=== PATIENT | male | born 1985 | race Caucasian/White ===

== ENCOUNTER → 2018-06-26 20:04 | Outpatient (CLI) | payer OTHER, SELFPAY ==
--- NOTE | 2018-06-26 20:18 | DI.MRI.S_ITS ---
PROCEDURE: MR KNEE RT WO CON INDICATIONS: LOCKED KNEE, CANNOT FULLY STRAIGHTEN TECHNIQUE: Noncontrast sagittal PD fast spin echo and T2 fast spin echo with fat saturation, sagittal 3-D FLASH with fat saturation; coronal T1 spin echo and PD fast spin echo with fat saturation, and axial PD fast spin echo with fat saturation through the knee. COMPARISON: None. FINDINGS: Image quality: Excellent. Menisci: Circumferential ill-defined macerated tear involving anterior horn, body and posterior horn of the medial meniscus. There is also truncation and blunting of the free margin the body. The lateral meniscus appears intact. Cruciate ligaments: Postsurgical changes related to prior ACL reconstruction. The graft appears grossly intact the posterior cruciate ligament appears intact Medial structures: Prominent thickening in signal change along the proximal medial collateral ligament where there is some ossification on image 27 series 20 presumably reflecting sequela from prior ligamentous injury. The posterior oblique ligament, semimembranosus tendon insertions, oblique popliteal ligament, and meniscocapsular junction appear intact. Visualized portions of the pes anserinus tendons appear normal. No abnormal bursal fluid. Lateral structures: The lateral collateral ligament, long and short heads of the biceps femoris tendon appear intact. The popliteus tendon appears normal; the popliteofibular ligament appears intact. The posterosuperior and anteroinferior popliteomeniscal fascicles appear intact. The arcuate and fabellofibular ligaments appear intact, on either side of the lateral inferior geniculate artery. Iliotibial band appears normal. Anterior structures: The quadriceps tendon appears intact. Proximal patellar tendinopathy. Patellar alignment is normal. No femoral trochlear dysplasia or ventral trochlear prominence. No edema in the infrapatellar fat pad. Bones and cartilage: No bone marrow contusions or fractures. Within the medial compartment, there is diffuse partial-thickness loss and fibrillation of the femoral and tibial articular cartilage. Within the lateral compartment, subchondral osteophyte seen in the central femoral condyle. There is overlying near full-thickness femoral articular cartilage loss there is also intrasubstance signal in the changes in the central tibial weightbearing cartilage. Within the patellofemoral compartment, diffuse surface fraying and partial-thickness loss of the patellar and femoral trochlear articular cartilage. Joint space: Large joint effusion is present. No definite loose bodies identified although there may be synovial thickening/synovitis in the suprapatellar recess. No Fontana's cyst. IMPRESSION: Circumferential macerated tear involving the medial meniscus as above. Intact ACL graft. Chronic appearing sprain of the proximal MCL. Tricompartmental degenerative joint disease. Large joint effusion. Dictated by: Usama Sanchez M.D. on 06/27/2018 at 8:36 Approved by: Usama Sanchez M.D. on 06/27/2018 at 9:23
== END ==
PROVIDERS: Referring Provider Orthopaedic Surgery; Visit Provider Orthopaedic Surgery
DX: M25.561 Pain in right knee (principal); S83.241A Other tear of medial meniscus, current injury, right knee, initial encounter; S83.411A Sprain of medial collateral ligament of right knee, initial encounter; M17.11 Unilateral primary osteoarthritis, right knee; M25.461 Effusion, right knee
CPT/HCPCS: 73721

== ENCOUNTER 2022-04-01 10:21 | Emergency (ER) | payer OTHER, SELFPAY ==
[2022-04-01] VITALS (10 sets, daily range): BP systolic 128–151; BP diastolic 81–109; PULSE 64–89; RESP 14–18; TEMP 36.6; O2SAT 96–100; BMI 24.3
--- NOTE | 2022-04-01 10:36 | DI.CT.S_ITS ---
PROCEDURE: CT KIDNEY URETER BLADDER (KUB) INDICATIONS: flank pain, ? stone TECHNIQUE: Axial sections were acquired from the lung bases to the pubic symphysis. Coronal and sagittal reformats were performed. For radiation dose reduction, the following was used: automated exposure control, adjustment of mA and/or kV according to patient size. COMPARISON: None. FINDINGS: Image quality: Excellent. Lung bases: Unremarkable. Heart: No significant findings. URINARY: Right Kidney: There are 2 renal calcifications the largest measuring 3 mm. No. Right Ureter: No hydroureter. Left Kidney: There are 3 punctate renal calcifications. Moderate hydronephrosis is present. Left Ureter: Proximal hydroureter. 7 mm proximal ureteral calcification, Hounsfield units 853 is present. A 2nd calcification approximately 5 mm distal is identified measuring 5 mm, Hounsfield units 701. Bladder: Normal wall thickness. No stones. ABDOMEN: Liver: Is enlarged measuring 19.6 cm. Gallbladder: Unremarkable. Biliary ducts: Unremarkable. Pancreas: Unremarkable. Spleen: Unremarkable. Adrenal Glands: Unremarkable. Stomach and Bowel: Stomach, small bowel loops, and colon are unremarkable. Peritoneum: No abnormal intraperitoneal fluid. No free air. Ventral Wall: No hernia. Abdominal Nodes: No enlarged retroperitoneal or mesenteric lymph nodes. Vessels: Aorta and inferior vena cava are normal in size. PELVIS: Pelvic Organs: Unremarkable. Pelvic Nodes: Unremarkable. Miscellaneous: No inguinal hernias are seen. Bones: Unremarkable. IMPRESSION: Nonobstructing bilateral renal calculi. Moderate left hydronephrosis and proximal hydroureter secondary to to proximal ureteral stone calcifications. Dictated by: Soheila Pascal M.D. on 04/01/2022 at 11:01 Approved by: Soheila Pascal M.D. on 04/01/2022 at 11:03
[2022-04-01] MEDS: ONDANSETRON 4 MG/2 ML INJ IV (10:55)
[2022-04-01] MEDS: HYDROMORPHONE 0.5 MG INJ IV ×2 (10:55→13:13)
[2022-04-01] MEDS: KETOROLAC 30 MG/ML VIAL 15 MG IV ×2 (10:55→13:39)
[2022-04-01] MEDS: SODIUM CHLORIDE 0.9% 1,000 ML 1000 ML IV ×3 (10:55→16:39)
[2022-04-01 11:26] LABS: Add Manual Diff / Slide Review NO; Basophils Absolute Auto 0 /uL (0-100); Basophils Percent Auto 0.2 % (0-2); Eosinophils Absolute Auto 100 /uL (0-450); Eosinophils Percent Auto 0.6 % (2-4); Hematocrit 45.6 % (41-53); Hemoglobin 15.8 g/dL (13.5-17.5); Lymphocytes Absolute Auto 1200 /uL (1100-4500); Lymphocytes Percent Auto 7.9 % (25-40); Mean Corpuscular HGB Conc 34.7 % (30-36); Mean Corpuscular Hemoglobin 34.1 PG (26-34); Mean Corpuscular Volume 98.3 fL (80-100); Monocytes Absolute Auto 600 /uL (0-900); Monocytes Percent Auto 3.9 % (3-14); Neutrophils Absolute Auto 12700 /uL (1500-7000); Neutrophils Percent Auto 87.4 % (50-75); Platelet Count 290 X10^3/uL (150-400); Red Blood Cell Count 4.64 X10^6/uL (4.5-5.9); Red Cell Distribution Width 13.5 % (11.6-14.8); White Blood Cell Count 14.6 X10^3/uL (4.5-11.0)
[2022-04-01 11:29] LABS: Alanine Aminotransferase 22 IU/L (<50); Albumin 4.3 g/dL (3.5-5.0); Albumin Globulin Ratio 1.3 (1.0-2.8); Alkaline Phosphatase 66 U/L (38-126); Aspartate Aminotransferase 30 IU/L (17-59); BUN Creatinine Ratio 10.7 (6-22); Bilirubin Total 0.4 mg/dL (0.2-1.3); Blood Urea Nitrogen 11 mg/dL (9-20); Calcium 8.8 mg/dL (8.4-10.2); Carbon Dioxide 22 mmol/L (22-32); Chloride 107 mmol/L (98-107); Estimated Glomerular Filt Rate > 60 mL/min (>60); Globulin 3.2 g/dL (1.7-4.1); Glucose 105 mg/dL (70-100); HEMOLYSIS 18 (0-50); Potassium 4.4 mmol/L (3.4-5.1); Sodium 141 mmol/L (137-145); Total Protein 7.5 g/dL (6.3-8.2)
--- NOTE | 2022-04-01 13:00 | ED_ITS ---
HPI - General Adult General Chief complaint: Urogenital-Male Stated complaint: left flank pain Time Seen by Provider: 04/01/22 10:32 Source: EMS Mode of arrival: EMS History of Present Illness HPI narrative: Otherwise healthy 37-year-old gentleman who began having severe left flank pain at 8:00 a.m. this morning. Is associated with severe diaphoresis, vomiting 2 episodes of loose stool. He has never had similar pain. He has not been sick prior to this. No palpitations, cough, fevers, headaches, chest pain. Related Data Previous Rx's Medication Instructions Recorded oxycodone-acetaminophen 5 mg-325 1 tab PO Q6H PRN pain #20 tabs 04/01/22 mg tablet tamsulosin 0.4 mg capsule 0.4 mg PO DAILY #30 caps 04/01/22 Allergies Allergy/AdvReac Type Severity Reaction Status Date / Time No Known Drug Allergies Allergy Verified 04/01/22 10:26 Review of Systems Review of Systems Narrative: Remainder of complete review of systems is otherwise unremarkable except for that included in the HPI. Patient History Social History Smoking Status: Current every day smoker Smoking Status: Current every day smoker tobacco type: cigarettes and vaping alcohol intake frequency: 0-2 drinks per day Substance Use Type: does not use Exam Initial Vital Signs Initial Vital Signs: Vital Signs Blood Pressure 147/100 H 04/01/22 10:22 General: Healthy appearing, mildly diaphoretic, moderate left flank pain but Able to give a complete and coherent history. Well-nourished well-developed HEENT: Moist mucous membranes, normal sclera with reactive pupils, Neck: No JVD, supple Respiratory: Lungs are clear to auscultation, no wheezing no rales no rhonchi. Full and symmetrical air movement Cardiac: Regular rate and rhythm no murmurs no bruits Abdomen: Soft, nontender, good bowel tones, left flank pain Skin: Warm and dry, no rashes Neurologic: Grossly neurologically intact with no obvious asymmetries or abnormalities Extremities: No trauma, well perfused Psych: Cooperative, appropriate insight and affect Course Orders Ordered: ED Orders 04/01/22 10:36 CT kidney ureter bladder (KUB) Stat 04/01/22 11:02 Complete Blood Count AUTO DIFF Stat Comprehensive Metabolic Panel Stat 04/01/22 17:55 Urine Microscopic Stat Hydromorphone HCl (Hydromorphone 0.5 Mg Inj) 0.5 mg IV Q15MIN PRN PRN Reason: Pain, Last Admin: 04/01/22 13:13 Dose: 0.5 mg Documented By: Admin: 04/01/22 10:55 Dose: 0.5 mg Documented By: LANNY Discontinued Medications Hydromorphone HCl (Hydromorphone 1 Mg Inj) 1 mg IV NOW ONE Stop: 04/01/22 16:13 Last Admin: 04/01/22 16:33 Dose: 1 mg Documented By: SEGUNDO Sodium Chloride (Normal Saline 0.9%) 1,000 mls @ 1,000 mls/hr IV BOLUS ONE Stop: 04/01/22 11:35 Last Infusion: 04/01/22 13:12 Dose: 0 mls/hr Documented By: Admin: 04/01/22 10:55 Dose: 1,000 mls/hr Documented By: LANNY Sodium Chloride (Normal Saline 0.9%) 1,000 mls @ 1,000 mls/hr IV BOLUS ONE Stop: 04/01/22 14:24 Last Infusion: 04/01/22 15:12 Dose: 0 mls/hr Documented By: Admin: 04/01/22 13:40 Dose: 1,000 mls/hr Documented By: ROBBIE Sodium Chloride (Normal Saline 0.9%) 1,000 mls @ 1,000 mls/hr IV BOLUS ONE Stop: 04/01/22 17:11 Last Infusion: 04/01/22 17:50 Dose: 0 mls/hr Documented By: Admin: 04/01/22 16:39 Dose: 1,000 mls/hr Documented By: SEGUNDO Ketorolac Tromethamine (Ketorolac 30 Mg/Ml Vial) 15 mg IV NOW ONE Stop: 04/01/22 10:37 Last Admin: 04/01/22 10:55 Dose: 15 mg Documented By: LANNY Ketorolac Tromethamine (Ketorolac 30 Mg/Ml Vial) 15 mg IV NOW ONE Stop: 04/01/22 13:26 Last Admin: 04/01/22 13:39 Dose: 15 mg Documented By: ROBBIE Ondansetron HCl (Ondansetron 4 Mg/2 Ml Inj) 4 mg IV NOW ONE Stop: 04/01/22 10:37 Last Admin: 04/01/22 10:55 Dose: 4 mg Documented By: LANNY Oxycodone/Acetaminophen (Oxycodone/Acetaminophen 5/325 Tablet) 2 tab PO NOW ONE Stop: 04/01/22 13:26 Last Admin: 04/01/22 13:40 Dose: 2 tab Documented By: ROBBIE Tamsulosin HCl (Tamsulosin 0.4 Mg Capsule) 0.4 mg PO NOW ONE Stop: 04/01/22 13:26 Last Admin: 04/01/22 13:41 Dose: 0.4 mg Documented By: ROBBIE Vital Signs Vital signs: Vital Signs - 8 hr 04/01/22 11:00 04/01/22 11:30 04/01/22 12:00 Pulse Rate 77 64 74 Respiratory Rate Blood Pressure Pulse Oximetry 96 97 98 Oxygen Delivery Method Room Air 04/01/22 12:30 04/01/22 13:00 04/01/22 18:29 Pulse Rate 85 75 89 Respiratory Rate 14 Blood Pressure 132/85 Pulse Oximetry 98 98 97 Oxygen Delivery Method Room Air Room Air Medical Decision Making Lab Data Result diagrams: 04/01/22 11:02 04/01/22 11:02 Labs: Lab Results 04/01/22 04/01/22 Range/Units 11:02 11:02 WBC 14.6 H (4.5-11.0) X10^3/uL RBC 4.64 (4.5-5.9) X10^6/uL Hgb 15.8 (13.5-17.5) g/dL Hct 45.6 (41-53) % MCV 98.3 (80-100) fL MCH 34.1 H (26-34) PG MCHC 34.7 (30-36) % RDW 13.5 (11.6-14.8) % Plt Count 290 (150-400) X10^3/uL Neut % (Auto) 87.4 H (50-75) % Lymph % (Auto) 7.9 L (25-40) % [place] % (Auto) 3.9 (3-14) % Eos % (Auto) 0.6 L (2-4) % Baso % (Auto) 0.2 (0-2) % Neut # (Auto) 99332 H (6760-8459) /uL Lymph # (Auto) 1200 (4590-8777) /uL [place] # (Auto) 600 (0-900) /uL Eos # (Auto) 100 (0-450) /uL Baso # (Auto) 0 (0-100) /uL Sodium 141 (137-145) mmol/L Potassium 4.4 (3.4-5.1) mmol/L Chloride 107 (98-107) mmol/L Carbon Dioxide 22 (22-32) mmol/L BUN 11 (9-20) mg/dL Creatinine 1.03 (0.66-1.25) mg/dL Estimated GFR > 60 (>60) mL/min BUN/Creatinine Ratio 10.7 (6-22) Glucose 105 H (70-100) mg/dL Calcium 8.8 (8.4-10.2) mg/dL Total Bilirubin 0.4 (0.2-1.3) mg/dL AST 30 (17-59) IU/L ALT 22 (<50) IU/L Alkaline Phosphatase 66 (38-126) U/L Total Protein 7.5 (6.3-8.2) g/dL Albumin 4.3 (3.5-5.0) g/dL Globulin 3.2 (1.7-4.1) g/dL Albumin/Globulin Ratio 1.3 (1.0-2.8) Urine Dip Bedside Urine Glucose Negative Bedside Urine Bilirubin - Negative Bedside Urine Ketone - Negative Urine Specific [place] 1.030 Bedside Urine Occult Blood +++ Bedside Urine pH 6.0 Bedside Urine Protein + 30 Bedside Urine Urobilinogen - Negative Bedside Urine Nitrite - Negative Bedside Urine Leukocytes - Negative Esterase Point of care testing: Urine Dip Bedside Urine Glucose Negative Bedside Urine Bilirubin - Negative Bedside Urine Ketone - Negative Urine Specific [place] 1.030 Bedside Urine Occult Blood +++ Bedside Urine pH 6.0 Bedside Urine Protein + 30 Bedside Urine Urobilinogen - Negative Bedside Urine Nitrite - Negative Bedside Urine Leukocytes - Negative Esterase Imaging Data CT scan - abdomen/pelvis: Radiologist's Impression: FINDINGS: Image quality: Excellent. Lung bases: Unremarkable. Heart: No significant findings. URINARY: Right Kidney: There are 2 renal calcifications the largest measuring 3 mm. No. Right Ureter: No hydroureter. Left Kidney: There are 3 punctate renal calcifications. Moderate hydronephro sis is present. Left Ureter: Proximal hydroureter. 7 mm proximal ureteral calcification, Hounsfield units 853 is present. A 2nd calcification approximately 5 mm distal is identified measuring 5 mm, Hounsfield units 701. Bladder: Normal wall thickness. No stones. ABDOMEN: Liver: Is enlarged measuring 19.6 cm. Gallbladder: Unremarkable. Biliary ducts: Unremarkable. Pancreas: Unremarkable. Spleen: Unremarkable. Adrenal Glands: Unremarkable. Stomach and Bowel: Stomach, small bowel loops, and colon are unremarkable. Peritoneum: No abnormal intraperitoneal fluid. No free air. Ventral Wall: No hernia. Abdominal Nodes: No enlarged retroperitoneal or mesenteric lymph nodes. Vessels: Aorta and inferior vena cava are normal in size. PELVIS: Pelvic Organs: Unremarkable. Pelvic Nodes: Unremarkable. Miscellaneous: No inguinal hernias are seen. Bones: Unremarkable. IMPRESSION: Nonobstructing bilateral renal calculi. Moderate left hydronephrosis and proximal hydroureter secondary to to proximal ureteral stone calcifications. Dictated by: Soheila Pascal M.D. on 04/01/2022 at 11:01 MDM Narrative Medical decision making narrative: 37-year-old gentleman with left ureteral stone x2. A 7 mm stone in the proximal ureter and just distal to that a 5 mm stone with proximal hydroureter. Pain has been controlled For brief period of time but has continued to recur. After IV Toradol in 2 Percocet pain was controlled for a short bit of time but is re turning. After 2 L of fluid he still has not made any urine. 3 L of fluid additional Dilaudid will all be given. Bladder scan was done he truly does not have urine in his bladder. creatinine is unremarkable so making urine should not be an issue I assume that this is all simply dehydration. He is able to drink water and is continuing to do so. Need to obtain urine sample to make sure there is no evidence of infection. Assuming urine shows no infection and we are able to get his pain under control he will be discharged home and will need to follow up tomorrow with Urology for consideration of lithotripsy with a low likelihood of being able to pass both a 5 and a 7 mm stone that are c urrently that high in the ureter. Patient is re-evaluated in pain is increasing again. He is given additional dose of Dilaudid. Urine is finally obtained after 3 large glasses of water in 3 L of fluid. Shows blood and protein with no evidence of white cells or bacteria. It is sent for culture. Pain is tolerable he describes it as a 4/6 at this point. Will give him additional Percocet to use at home this evening and discharge him home with instructions to follow-up with urology tomorrow re garding his dual kidney stones and probable need for lithotripsy. At this point there is no evidence of acute renal failure, infection, acute need for surgical intervention or stenting and he is safe for home discharge. Discharge Plan Departure Patient Disposition: Home Clinical Impression: Ureterolithiasis, Bilateral kidney stones Instructions: DI for Kidney Stones Activity Restrictions/Additional Instructions: Thank you for coming in today You have multiple small kidney stones in both kidneys but what is causing your acute pain is too large kidney stones in the left ureter, the tube that connects the bladder to the kidney. There is a 7 mm stone that is closer to the bladder and a 5 mm stone a bit further down. At this time there is no evidence of infection or kidney failure. It is safe for you to go home. You will need to continue to use medications to stay on top of the pain. Using 400 mg of ibuprofen (2 gzip-fda-kyekean pills) and 1 Tylenol every 6 hours can be very helpful in controlling pain. For severe pain you can use 400 mg of ibuprofen and 1-2 Percocet. You do need to make sure that you stay well-hydrated. I am also going to have you take tamsulosin/Flomax daily until both stones have successfully passed. Tomorrow, you need to contact [facility] and let them know urine the emergency department, you have a 7 and a 5 mm stone in the left ureter and need to be seen for definitive treatment. [phone] If you are having increasing pain, vomiting that isn't controlled, fevers, aching all over or symptoms of actually being sick you need to return to the emergency department. Prescriptions: New oxycodone-acetaminophen 5-325 mg tablet 1 tab PO Q6H PRN (Reason: pain) Qty: 20 0RF tamsulosin 0.4 mg capsule 0.4 mg PO DAILY Qty: 30 0RF Referrals: Aly Vasquez MD [Physician] - Provider,Hannah MCKOY [Primary Care Provider] -
[2022-04-01] MEDS: OXYCODONE/ACETAMINOPHEN 5/325 TABLET 2 TAB PO ×2 (13:40→18:55)
[2022-04-01] MEDS: TAMSULOSIN 0.4 MG CAPSULE PO (13:41)
[2022-04-01] MEDS: HYDROMORPHONE 1 MG INJ IV (16:33)
[2022-04-01 18:44] LABS: Bacteria Urine None Seen; Culture Indicated Urine Cult Not Indicated; Mucus Urine 1+ (Negative); RBC Urine 5-10/HPF (0-5/HPF); WBC Urine 0-1/HPF (0-5/HPF)
[2022-04-01] MEDS: OXYCODONE/APAP 5/325 PREPACK 1 BOTTLE MISC (18:55)
== END 2022-04-01 19:05 | disposition home or self-care (01) ==
PROVIDERS: Emergency Provider Emergency Medicine
DX: N20.1 Calculus of ureter (principal); N20.0 Calculus of kidney
CPT/HCPCS: 51798; 74176; 80053; 81003; 81015; 85025; 96361; 96374; 96375; 96376; 99284; J1170; J1885; J2405

== ENCOUNTER 2023-06-10 09:59 | Emergency (ER) | payer OTHER, SELFPAY ==
[2023-06-10] VITALS (13 sets, daily range): BP systolic 150–178; BP diastolic 87–102; PULSE 72–93; RESP 18; TEMP 36.4; O2SAT 94–96; BMI 25.0
[2023-06-10 10:36] LABS: Add Manual Diff / Slide Review NO; Basophils Absolute Auto 0 /uL (0-100); Basophils Percent Auto 0.2 % (0-2); Eosinophils Absolute Auto 100 /uL (0-450); Eosinophils Percent Auto 0.4 % (2-4); Hematocrit 44.6 % (41-53); Hemoglobin 15.5 g/dL (13.5-17.5); Lymphocytes Absolute Auto 1400 /uL (1100-4500); Lymphocytes Percent Auto 11.1 % (25-40); Mean Corpuscular HGB Conc 34.8 % (30-36); Mean Corpuscular Hemoglobin 33.8 PG (26-34); Monocytes Absolute Auto 800 /uL (0-900); Monocytes Percent Auto 6.5 % (3-14); Neutrophils Absolute Auto 10400 /uL (1500-7000); Neutrophils Percent Auto 81.8 % (50-75); Platelet Count 256 X10^3/uL (150-400); Red Cell Distribution Width 13.1 % (11.6-14.8); White Blood Cell Count 12.8 X10^3/uL (4.5-11.0)
[2023-06-10 10:40] LABS: Alanine Aminotransferase 30 IU/L (<50); Albumin 4.4 g/dL (3.5-5.0); Albumin Globulin Ratio 1.4 (1.0-2.8); Alkaline Phosphatase 70 U/L (38-126); Aspartate Aminotransferase 39 IU/L (17-59); BUN Creatinine Ratio 7.7 (6-22); Bilirubin Total 1.3 mg/dL (0.2-1.3); Blood Urea Nitrogen 10 mg/dL (9-20); Calcium 9.7 mg/dL (8.4-10.2); Carbon Dioxide 22 mmol/L (22-32); Chloride 106 mmol/L (98-107); Estimated Glomerular Filt Rate > 60 mL/min (>60); Globulin 3.1 g/dL (1.7-4.1); Glucose 117 mg/dL (70-100); HEMOLYSIS 21 (0-50); Lipase 45 U/L (23-300); Potassium 3.8 mmol/L (3.4-5.1); Sodium 135 mmol/L (137-145); Total Protein 7.5 g/dL (6.3-8.2)
--- NOTE | 2023-06-10 10:58 | ED.MALEGU ---
HPI - Male Genitourinary General Chief complaint: Urogenital-Male Stated complaint: per pt kidney stones Time Seen by Provider: 06/10/23 10:15 Source: patient Mode of arrival: Ambulatory Limitations: no limitations History of Present Illness HPI Narrative: 38-year-old male with history of kidney stones in the past. Patient states feels very similar started last night left flank radiating around to the front. Goes down into his testicle. Patient states he is always passed his stones on his own. He denies fevers or chills. He is had some nausea but no vomiting. Denies chest pain or shortness of breath. No syncope. States he is only had some small bowel movements with small muscle stool little bit of liquid stool. No black or bloody stools. He has not felt like he needed to urinate since last night. Has not urinated since. Had bladder scan in . He states he was drinking water had a glass was sweet tea, about 10 oz of water another glass of liquid last night. Patient states he is not on any daily prescription medications. Denies any surgery never required intervention for kidney stones. No known drug allergies. He vapes tobacco daily, occasional alcohol, no recreational drugs. Related Data Previous Rx's Medication Instructions Recorded oxycodone-acetaminophen 5 mg-325 1 tab PO Q6H PRN pain #20 tabs 04/01/22 mg tablet tamsulosin 0.4 mg capsule 0.4 mg PO DAILY #30 caps 04/01/22 oxycodone 5 mg tablet 5 mg PO Q6H PRN pain #14 tabs 06/10/23 tamsulosin 0.4 mg capsule (Flomax) 0.4 mg PO DAILY #7 caps 06/10/23 Allergies Allergy/AdvReac Type Severity Reaction Status Date / Time No Known Drug Allergies Allergy Verified 04/01/22 10:26 Review of Systems Review of Systems ROS Unobtainable: All systems reviewed & are unremarkable except as noted in HPI and below Patient History Social History Smoking Status: Current every day smoker Smoking Status: Current every day smoker tobacco type: vaping alcohol intake frequency: a few times a week Substance Use Type: does not use Exam Narrative Exam Narrative: GENERAL: Alert and oriented x three, well-appearing male in moderate distress. HEENT: Head normocephalic, atraumatic, EOMI, pupils reactive, face symmetric, moist mucous membranes NECK: Supple, full range of motion CARDIOVASCULAR: Regular rate and rhythm without murmurs, rubs or gallops. RESPIRATORY: Breath sounds equal bilaterally, no wheezes rales or rhonchi. ABDOMEN: Soft, nontender. Normoactive bowel sounds all 4 quadrants. No guarding or rebound, rigidity, no mass : Mild left CVA tenderness, right CVA tenderness. EXTREMITIES: Normal range of motion, no clubbing or edema. Neurovascularly intact NEUROLOGICAL: Cranial nerves II through XII grossly intact. Moving all extremities SKIN: Warm, dry, no petechiae, no rashes or lesions. Initial Vital Signs Initial Vital Signs: Vital Signs Temperature 97.6 F 06/10/23 10:00 Pulse Rate 81 06/10/23 10:00 Respiratory Rate 18 06/10/23 10:00 Blood Pressure 178/102 H 06/10/23 10:00 Pulse Oximetry 96 06/10/23 10:00 Oxygen Delivery Method Room Air 06/10/23 10:00 Course Orders Ordered: ED Orders 06/10/23 10:10 CBC Auto Diff [Complete Blood Count AUTO DIFF] Stat CMP [Comprehensive Metabolic Panel] Stat Lipase Stat 06/10/23 11:04 CT kidney ureter bladder (KUB) Stat 06/10/23 13:10 UA dip and micro [Urinalysis and Microscopic] Stat Discontinued Medications Sodium Chloride (Normal Saline 0.9%) 1,000 mls @ 1,000 mls/hr IV BOLUS ONE Stop: 06/10/23 12:03 Last Infusion: 06/10/23 12:36 Dose: Infused Documented By: Admin: 06/10/23 11:27 Dose: 1,000 mls/hr Documented By: NOEL Lidocaine HCl 7 ml/ Sodium (Chloride) 57 mls @ 342 mls/hr IV NOW ONE Stop: 06/10/23 11:22 Last Infusion: 06/10/23 11:47 Dose: Infused Documented By: Admin: 06/10/23 11:29 Dose: 342 mls/hr Documented By: NOEL Sodium Chloride (Normal Saline 0.9%) 1,000 mls @ 1,000 mls/hr IV BOLUS ONE Stop: 06/10/23 13:36 Last Infusion: 06/10/23 13:41 Dose: Infused Documented By: Admin: 06/10/23 12:38 Dose: 1,000 mls/hr Documented By: NOEL Ketorolac Tromethamine (Ketorolac 30 Mg/Ml Vial) 15 mg IV NOW ONE Stop: 06/10/23 11:05 Last Admin: 06/10/23 11:25 Dose: Not Given Documented By: NOEL Ondansetron HCl (Ondansetron 4 Mg/2 Ml Inj) 4 mg IV NOW ONE Stop: 06/10/23 11:05 Last Admin: 06/10/23 11:27 Dose: 4 mg Documented By: NOEL Vital Signs Vital signs: Vital Signs - 8 hr 06/10/23 11:29 06/10/23 11:29 06/10/23 11:30 Pulse Rate 90 87 Blood Pressure 169/98 H Pulse Oximetry 95 94 06/10/23 11:31 06/10/23 11:31 06/10/23 12:00 Pulse Rate 85 88 Blood Pressure 160/97 H Pulse Oximetry 94 95 06/10/23 12:00 06/10/23 12:30 06/10/23 12:30 Pulse Rate 87 Blood Pressure 168/100 H 155/97 H Pulse Oximetry 94 06/10/23 13:00 06/10/23 13:00 06/10/23 13:30 Pulse Rate 72 80 Blood Pressure 150/92 H Pulse Oximetry 95 94 06/10/23 13:30 06/10/23 14:00 06/10/23 14:00 Pulse Rate 85 Blood Pressure 160/89 H 164/97 H Pulse Oximetry 94 MDM - Male Genitourinary Lab Data 06/10/23 10:10 06/10/23 10:10 Labs: Lab Results 06/10/23 06/10/23 Range/Units 10:10 13:10 WBC 12.8 H (4.5-11.0) X10^3/uL RBC 4.60 (4.5-5.9) X10^6/uL Hgb 15.5 (13.5-17.5) g/dL Hct 44.6 (41-53) % MCV 97.0 (80-100) fL MCH 33.8 (26-34) PG MCHC 34.8 (30-36) % RDW 13.1 (11.6-14.8) % Plt Count 256 (150-400) X10^3/uL Neut % (Auto) 81.8 H (50-75) % Lymph % (Auto) 11.1 L (25-40) % Gillespie % (Auto) 6.5 (3-14) % Eos % (Auto) 0.4 L (2-4) % Baso % (Auto) 0.2 (0-2) % Neut # (Auto) 65335 H (4632-6850) /uL Lymph # (Auto) 1400 (4186-4065) /uL Gillespie # (Auto) 800 (0-900) /uL Eos # (Auto) 100 (0-450) /uL Baso # (Auto) 0 (0-100) /uL Sodium 135 L (137-145) mmol/L Potassium 3.8 (3.4-5.1) mmol/L Chloride 106 (98-107) mmol/L Carbon Dioxide 22 (22-32) mmol/L BUN 10 (9-20) mg/dL Creatinine 1.30 H (0.66-1.25) mg/dL Estimated GFR > 60 (>60) mL/min BUN/Creatinine Ratio 7.7 (6-22) Glucose 117 H (70-100) mg/dL Calcium 9.7 (8.4-10.2) mg/dL Total Bilirubin 1.3 (0.2-1.3) mg/dL AST 39 (17-59) IU/L ALT 30 (<50) IU/L Alkaline Phosphatase 70 (38-126) U/L Total Protein 7.5 (6.3-8.2) g/dL Albumin 4.4 (3.5-5.0) g/dL Globulin 3.1 (1.7-4.1) g/dL Albumin/Globulin Ratio 1.4 (1.0-2.8) Lipase 45 (23-300) U/L Urine Color Yellow Urine Appearance Clear Urine pH 6.5 (4.5-8.0) Ur Specific [place] 1.020 (1.000-1.035) Urine Protein Trace H (Negative) Urine Glucose (UA) Negative (Negative) g/dL Urine Ketones Trace H (NEGATIVE) Urine Occult Blood 2+ H (Negative) Urine Nitrate Negative (Negative) Urine Bilirubin Negative (NEGATIVE) Urine Urobilinogen 0.2 (0.2) E.U./dL Ur Leukocyte Esterase Negative (NEGATIVE) Urine RBC 5-10/hpf H (0-5/HPF) Urine WBC None seen (0-5/HPF) Ur Squamous Epith Cells 0-1 /hpf (0-5/HPF) Urine Bacteria None seen (None) Ur Culture Indicated? Cult not indicated Imaging Data CT scan - abdomen/pelvis: Radiologist's Impression: [address] [address] [address] Scan Report Signed Patient: Paul Shafer MR#: [id number] : 1985 Acct:[id number] Age/Sex: 38 / M Date of Service: 06/10/23 Loc: ED Accession Number: [id number] Procedure: CT kidney ureter bladder (KUB) Ordering Provider: Samina Armstrong D.O. PROCEDURE: CT KIDNEY URETER BLADDER (KUB) INDICATIONS: left flank pain, doesn't need to urinate. TECHNIQUE: Axial sections were acquired from the lung bases to the pubic symphysis. Coronal and sagittal reformats were performed. For radiation dose reduction, the following was used: automated exposure control, adjustment of mA and/or kV according to patient size. COMPARISON: [facility], CT, CT KIDNEY URETER BLADDER (KUB), 04/01/2022, 10:44. FINDINGS: Image quality: Excellent. Lung bases: Unremarkable. Heart: No significant findings. URINARY: Moderate left renal enlargement. Right renal contour is within normal limits. Moderate left perinephric fat stranding. Nonobstructing punctate 2 mm calculus within the right interpolar kidney. Nonobstructing 3 mm calculus in the inferior pole right kidney. No left nephrolithiasis. Moderate left hydronephrosis and moderate left ureteral dilatation. There is a 10 mm diameter left ureterovesical junction calculus with Hounsfield units of 1300. No right ureteral dilatation or calcification. Urinary bladder is grossly unremarkable. ABDOMEN: Liver: No contour-deforming solid mass. Gallbladder: No radiopaque gallstones or wall thickening. Biliary ducts: No biliary dilation. Pancreas: No ductal dilation. Spleen: Size is within normal limits. Adrenal Glands: No adrenal nodules. Stomach and Bowel: Normal colonic caliber, without significant wall thickening. Normal appendix. Peritoneum: No abnormal intraperitoneal fluid. No free air. Ventral Wall: No hernia. Abdominal Nodes: No enlarged retroperitoneal or mesenteric lymph nodes. Vessels: Aorta and inferior vena cava are normal in size. PELVIS: Pelvic Organs: Unremarkable. Pelvic Nodes: Unremarkable. Miscellaneous: No inguinal hernias are seen. Bones: Unremarkable. IMPRESSION: 1. Left ureterovesical junction calculus associated with left hydronephrosis. 2. Nonobstructing right renal calculi. Dictated by: Costa Lind M.D. on 06/10/2023 at 11:52 Approved by: Costa Lind M.D. on 06/10/2023 at 11:[address] [facility] Narrative Medical decision making narrative: 38-year-old male with a history of kidney stones with symptoms quite consistent. Has a little bit of a white count, creatinine slightly elevated 1.3 was 1.03 in March GFR is greater than 60 on both visits. Sodium is 135 normal electrolytes glucose of 117 with negative LFTs and lipase. UA showed blood no signs of infection. Plan for CT KUB patient states he is had stones up to 7 mm in the past. This shows left ureterovesicular junction calculus in his 10 mm with Hounsfield units of 1300 moderate left hydro and moderate left ureteral dilation. Moderate left perinephric fat stranding. Nonobstructing 3 mm calculus inferior right pole. Nonobstructing punctate 2 mm calculus within the right kidney. Nonobstructing 3 mm inferior right pull. Fluids, antinausea medication and pain medication were given. On recheck patient is feeling much improved still has pain but states he does not eat anything addition. Discussed with patient we have on-call Urology through [facility] but no in-house Urology. He has a large stone may but may not. It is right at the ureterovesicular junction. Creatinine is slightly bumped. Discussed with patient would like to have his labs rechecked in the next 2 days. I asked him to call Urology 1st thing today or tomorrow morning if symptoms have not completely resolved patient is to return if persisting symptoms. Discharge Plan Departure Patient Disposition: Home Clinical Impression: Kidney stone on left side Instructions: DI for Kidney Stones Activity Restrictions/Additional Instructions: Please follow up with Urology, based on the size of your stone you may not be able to pass this but it is at the ureter and bladder connection. Call today to set up follow up appointment. Take Flomax once daily until gone. Can take Tylenol up to a 1000 mg every 6 hours and/or ibuprofen up to 600 mg every 6 hours. Can take narcotic pain medication 1-2 tablets every 6 hours as needed for pain. This medication can make you sleepy do not drive, perform hazardous activities or make any major decisions while taking it. This medication will make you constipated please take a stool softener once to twice daily until stools are soft and regular. Prescription sent to [facility] in [place]. Please return for fevers, worsening abdominal back or flank pain, persistent vomiting, if you are still not able to urinate or other new or concerning changes. Prescriptions: New tamsulosin [Flomax] 0.4 mg capsule 0.4 mg PO DAILY Qty: 7 0RF oxycodone 5 mg tablet 5 mg PO Q6H PRN (Reason: pain) Qty: 14 0RF No Action oxycodone-acetaminophen 5-325 mg tablet 1 tab PO Q6H PRN (Reason: pain) Qty: 20 0RF tamsulosin 0.4 mg capsule 0.4 mg PO DAILY Qty: 30 0RF Referrals: Provider,Hannah MCKOY [Primary Care Provider] - John Larkin MD [Physician] - Stand Alone Forms: Patient Portal/API
--- NOTE | 2023-06-10 11:04 | DI.CT.S_ITS ---
PROCEDURE: CT KIDNEY URETER BLADDER (KUB) INDICATIONS: left flank pain, doesn't need to urinate. TECHNIQUE: Axial sections were acquired from the lung bases to the pubic symphysis. Coronal and sagittal reformats were performed. For radiation dose reduction, the following was used: automated exposure control, adjustment of mA and/or kV according to patient size. COMPARISON: [facility], CT, CT KIDNEY URETER BLADDER (KUB), 04/01/2022, 10:44. FINDINGS: Image quality: Excellent. Lung bases: Unremarkable. Heart: No significant findings. URINARY: Moderate left renal enlargement. Right renal contour is within normal limits. Moderate left perinephric fat stranding. Nonobstructing punctate 2 mm calculus within the right interpolar kidney. Nonobstructing 3 mm calculus in the inferior pole right kidney. No left nephrolithiasis. Moderate left hydronephrosis and moderate left ureteral dilatation. There is a 10 mm diameter left ureterovesical junction calculus with Hounsfield units of 1300. No right ureteral dilatation or calcification. Urinary bladder is grossly unremarkable. ABDOMEN: Liver: No contour-deforming solid mass. Gallbladder: No radiopaque gallstones or wall thickening. Biliary ducts: No biliary dilation. Pancreas: No ductal dilation. Spleen: Size is within normal limits. Adrenal Glands: No adrenal nodules. Stomach and Bowel: Normal colonic caliber, without significant wall thickening. Normal appendix. Peritoneum: No abnormal intraperitoneal fluid. No free air. Ventral Wall: No hernia. Abdominal Nodes: No enlarged retroperitoneal or mesenteric lymph nodes. Vessels: Aorta and inferior vena cava are normal in size. PELVIS: Pelvic Organs: Unremarkable. Pelvic Nodes: Unremarkable. Miscellaneous: No inguinal hernias are seen. Bones: Unremarkable. IMPRESSION: 1. Left ureterovesical junction calculus associated with left hydronephrosis. 2. Nonobstructing right renal calculi. Dictated by: Costa Lind M.D. on 06/10/2023 at 11:52 Approved by: Costa Lind M.D. on 06/10/2023 at 11:54
[2023-06-10] MEDS: ONDANSETRON 4 MG/2 ML INJ IV (11:27)
[2023-06-10] MEDS: SODIUM CHLORIDE 0.9% 1,000 ML 1000 ML IV ×2 (11:27→12:38)
[2023-06-10] MEDS: LIDOCAINE 2% (PF) 7 ML in SODIUM CHLORIDE 0.9% 50 ML 342 ML IV (11:29)
[2023-06-10 13:16] LABS: Appearance Urine UA CLEAR; Bilirubin Urine UA NEGATIVE (NEGATIVE); Color Urine UA YELLOW; Glucose Urine UA NEGATIVE (Negative); Ketones Urine UA TRACE (NEGATIVE); Leukocyte Esterase Urine UA NEGATIVE (NEGATIVE); Nitrite Urine UA NEGATIVE (Negative); Occult Blood Urine UA 2+ (Negative); Protein Urine UA TRACE (Negative); Urobilinogen Urine UA 0.2 E.U./dL (0.2); pH Urine UA 6.5 (4.5-8.0)
[2023-06-10 13:24] LABS: RBC Urine 5-10/HPF (0-5/HPF); WBC Urine None Seen (0-5/HPF)
[2023-06-10 13:25] LABS: Bacteria Urine None Seen; Culture Indicated Urine Cult Not Indicated; Squamous Epithelial Cell Urine 0-1 /HPF (0-5/HPF)
== END 2023-06-10 14:25 | disposition home or self-care (01) ==
PROVIDERS: Emergency Provider Emergency Medicine
DX: N20.0 Calculus of kidney (principal); Z87.442 Personal history of urinary calculi
CPT/HCPCS: 36415; 74176; 80053; 81001; 83690; 85025; 96365; 96375; 99284; J2405